=== PATIENT | female | born 1955 | race Caucasian/White ===

== ENCOUNTER → 2021-12-11 | Outpatient (CLI) | payer BC | END | disposition home or self-care (01) | LOC: RAD 10:38 | PROVIDERS: ATTEND Internal Medicine | DX: R06.02 Shortness of breath (principal) ==

== ENCOUNTER → 2023-07-09 | Outpatient (CLI) | payer MEDICARE | END | disposition home or self-care (01) | LOC: CT 00:07 | PROVIDERS: ATTEND Internal Medicine | DX: K76.0 Fatty (change of) liver, not elsewhere classified (principal); K20.90 Esophagitis, unspecified without bleeding; K59.89 Other specified functional intestinal disorders ==

== ENCOUNTER → 2023-11-30 | Outpatient (CLI) | payer MEDICARE | END | disposition home or self-care (01) | LOC: CT 15:33 | PROVIDERS: ATTEND Internal Medicine | DX: K57.30 Diverticulosis of large intestine without perforation or abscess without bleeding (principal) ==

== ENCOUNTER → 2025-05-12 | Outpatient (CLI) | payer MEDICARE ==
[~2025-05-12] MED LIST: ALENDRONATE SOD70 M1 PO; CITALOPRAM40 MG PO; GABAPENTIN400 MG PO; LISINOPRIL20 MG PO; OMEPRAZOLE40 MG PO; Regadenoson 0.4 MG/5 ML SYR IV ONE; SINGULAIR10 M1 PO; TENORMIN25 M1 PO; Technetium Tc 99M Tetrofosmi 0.23 MG KIT IJ SCH
== END | disposition home or self-care (01) ==
LOC: CARD 03:20
PROVIDERS: ATTEND Internal Medicine
DX: R06.02 Shortness of breath (principal)